=== PATIENT | female | born 1975 | race Caucasian/White ===

== ENCOUNTER 2016-05-26 10:26 | Day surgery (SDC) | payer MEDICAID ==
[~2016-05-26 10:26] MED LIST: ACETAMINOPHEN 500 MG TAB PO ONE; PREGABALIN 150 MG CAP PO ONE; ceFAZolin 2 GM/DEXTROSE 100 ML IV ONE
[2016-05-26] MEDS ORDERED: BUPIVACAINE/EPI 0.25% 30 ML SDV ONE (10:48)
[2016-05-26] MEDS ORDERED: ACETAMINOPHEN 500 MG TAB ONE (10:57)
[2016-05-26] MEDS ORDERED: SCOPOLAMINE HYDROBROMIDE 1.5 MG PATCH TD ONE ×2 (10:57→11:30)
[2016-05-26] MEDS ORDERED: PREGABALIN 150 MG CAP ONE (10:57)
[2016-05-26] MEDS ORDERED: CEFAZOLIN 2 GM/DEXTROSE/100 ML BAG IV ONE (10:58)
[2016-05-26] MEDS ORDERED: MIDAZOLAM 2 MG/2 ML VIAL ONE (11:19)
[2016-05-26] MEDS ORDERED: PROPOFOL/EMULSION 500 MG/50 ML BOTTLE IV ONE ×5 (11:22→15:16)
[2016-05-26] MEDS ORDERED: fentaNYL 250 MCG/5 ML INJ ONE (11:22)
[2016-05-26] MEDS ORDERED: LIDOCAINE 2% 5 ML SDV ONE (11:22)
[2016-05-26] MEDS ORDERED: DEXAMETHASONE 4 MG/ML VIAL ONE (11:22)
[2016-05-26] MEDS ORDERED: LABETALOL HCL 5 MG/ML 20 ML MDV ONE (13:07)
[2016-05-26] MEDS ORDERED: ONDANSETRON 4 MG/2 ML VIAL ONE (15:09)
[2016-05-26] MEDS ORDERED: HYDROCODONE/APAP 5/325 TAB ONE ×2 (17:46→18:27)
[2016-05-26] MEDS ORDERED: fentaNYL 100 MCG/2 ML INJ ONE (17:57)
== END 2016-05-26 19:20 | disposition home or self-care (01) ==
LOC: FSGY 10:26
PROVIDERS: ATTEND Orthopaedic Surgery Sports Medicine
PROC: 0SQ94ZZ Repair Right Hip Joint, Percutaneous Endoscopic Approach (ICD-10-PCS; principal; 2016-05-26 12:00)
DX: M25.851 Other specified joint disorders, right hip (principal); M24.151 Other articular cartilage disorders, right hip
CPT/HCPCS: 29914; 29916; 76001; C1769; C1713; J0171; J0690; J1100; J2250; J2405; J2704; J3010; J3490